=== PATIENT | female | born 1995 | race Caucasian/White ===

== ENCOUNTER → 2022-02-17 | Outpatient (CLI) | payer MEDICAID ==
--- NOTE | 2022-02-17 13:55 | Diagnostic Imaging Report ---
INDICATION: Supervision of normal . Anatomy survey. TECHNIQUE: Multiple real-time grayscale images were obtained over the gravid uterus. COMPARISON: None. FINDINGS: A single live intrauterine gestation is visualized in cephalic presentation. heart tones measure 150 BPM. The placenta is posterior and not low lying. Visually, the BRE is normal, although no measurements were provided. Cervix is closed and measures 5.7 cm in length. The kidneys, bladder, stomach, brain, four-chamber heart, three-vessel cord, spine, and cord insertion are visualized and have a normal appearance. Views of the adnexa have a normal appearance. Biometrical measurements are as follows: Biparietal 5.07 cm, age 21 weeks 3 days. Head circumference 18.85 cm, age 21 weeks 2 days. Abdominal circumference 14.90 cm, age 20 weeks 2 days. Femur length 3.30 cm, age 20 weeks 3 days. Sonographic estimate age: 20 weeks 6 days. Sonographic estimated date of delivery: 07/01/2022. Estimated Weight: 349 gm (+/- 51 gm). LMP percentile: 58%. heart rate: 150 beats per minute. number: 1 of 1. IMPRESSION: 1. Single live intrauterine gestation measuring 20 weeks 6 days with an estimated due date of 07/01/2022. These are within range with the clinical dates. Recommend continued follow-up as indicated. 2. Unremarkable appearance of the anatomy. No abnormalities are identified. Dictated by: Dictated on workstation # [id number]
== END ==
LOC: RAD 12:00
PROVIDERS: ATTEND Obstetrics & Gynecology
DX: Z34.92 Encounter for supervision of normal pregnancy, unspecified, second trimester (principal); Z36.1 Encounter for antenatal screening for raised alphafetoprotein level; Z3A.00 Weeks of gestation of pregnancy not specified
CPT/HCPCS: 76805

== ENCOUNTER → 2022-05-12 | Outpatient (CLI) | payer MEDICAID ==
--- NOTE | 2022-05-12 18:02 | Diagnostic Imaging Report ---
INDICATION: Evaluate growth. 32 weeks 1 day gestation. TECHNIQUE: Multiple real-time grayscale images were obtained over the gravid uterus. COMPARISON: 02/17/2022 FINDINGS: The cervix measures 4.9 cm in length. There is no endocervical fluid or significant funneling. There is a single live intrauterine gestation in breech presentation. The heart rate measures 144 BPM. The placenta is posterior without evidence of previa. The amniotic fluid index measures 11.3 cm. The profile is seen. Biometrical measurements are as follows: Biparietal 8.53 cm, age 34 weeks 3 days. Head circumference 31.92 cm, age 36 weeks 0 days. Abdominal circumference 28.61 cm, age 32 weeks 5 days. Femur length 6.18 cm, age 32 weeks 1 days. Sonographic estimate age: 33 weeks 6 days. Sonographic estimated date of delivery: 06/24/2022. Estimated Weight: 2083 gm (+/- 304 gm). LMP percentile: 66%. heart rate: 144 beats per minute. number: 1 of 1. IMPRESSION: 1. Single live intrauterine gestation measuring at 33 weeks and 6 days which is within range of the clinical dates. 2. Breech presentation. Dictated by: Dictated on workstation # [id number]
== END ==
LOC: RAD 14:00
PROVIDERS: ATTEND Obstetrics & Gynecology
DX: Z87.59 Personal history of other complications of pregnancy, childbirth and the puerperium (principal)
CPT/HCPCS: 76805

== ENCOUNTER 2022-06-30 08:51 | Inpatient (IN) | payer MEDICAID ==
[2022-06-30] VITALS (43 sets, daily range): BP systolic 98–136; BP diastolic 57–85
[~2022-06-30] VITALS: Ht 177.8 cm; Wt 85.8 kg
[2022-06-30 09:40] LABS: BASOPHILS # (AUTO) 0.1 10^3/uL (0.0-0.1); BASOPHILS % (AUTO) 1 % (0-10); EOSINOPHILS # (AUTO) 0.3 10^3/uL (0.0-0.3); EOSINOPHILS % (AUTO) 2 % (0-10); HEMATOCRIT 37 % (35-52); HEMOGLOBIN 12.4 g/dL (11.5-16.0); LYMPHOCYTES # (AUTO) 1.9 10^3/uL (1.0-4.0); LYMPHOCYTES % (AUTO) 15 % (12-44); MEAN CORPUSCULAR HEMOGLOBIN 31 pg (25-34); MEAN CORPUSCULAR HGB CONC 33 g/dL (32-36); MEAN CORPUSCULAR VOLUME 94 fL (80-99); MEAN PLATELET VOLUME 11.5 fL (9.0-12.2); MONOCYTES % (AUTO) 8 % (0-12); NEUTROPHILS # (AUTO) 9.5 10^3/uL (1.8-7.8); NEUTROPHILS % (AUTO) 74 % (42-75); PLATELET COUNT 202 10^3/uL (130-400); WHITE BLOOD COUNT 12.8 10^3/uL (4.3-11.0)
[2022-06-30] MEDS ORDERED: D5 LR IV SOLUTION 1,000 ML IV SCH (09:45)
[2022-06-30] MEDS ORDERED: MINERAL OIL 30 ML UDC TOP PRN (09:45)
[2022-06-30] MEDS ORDERED: fentaNYL 2 mcg/ml BUPIVA 0.125 100 ML ONE (09:54)
[2022-06-30] MEDS ORDERED: fentaNYL INJ 100 MCG/2 ML AMP ONE (10:00)
[2022-06-30] MEDS ORDERED: BUPIVACAINE 0.25% 10 ML (SENSORCAINE) VIAL ONE (10:00)
[2022-06-30] MEDS ORDERED: diphenhydrAMINE 50 MG/ML INJ (BENADRYL) IV PRN (10:15)
[2022-06-30] MEDS ORDERED: CATHETER FLUSH 10 ML SYR IV PRN (10:15)
[2022-06-30] MEDS ORDERED: LACTATED RINGERS 1,000 ML IV ONE (10:15)
[2022-06-30] MEDS ORDERED: ONDANSETRON 4 MG/2 ML (SDV) Z0FRAN IV PRN (10:15)
[2022-06-30] MEDS ORDERED: fentaNYL 2 mcg/ml BUPIVA 0.125 100 ML IV SCH (10:15)
[2022-06-30] MEDS ORDERED: NALOXONE 0.4 MG/ML 1 ML (NARCAN) VIAL IV PRN ×2 (10:15→19:00)
[2022-06-30] MEDS ORDERED: OXYTOCIN PRE-MIX DRIP 500 ML IV SCH ×2 (12:15→19:00)
[2022-06-30] MEDS ORDERED: CATHETER FLUSH 10 ML SYR IV SCH ×2 (14:00→22:00)
--- NOTE | 2022-06-30 16:15 | History & Physical-OB ---
OB - Chief Complaint & HPI Date/Time Date of Admission: Date of Admission: Jun 30, 2022 at 09:34 Date seen by a Provider: Jun 30, 2022 Time Seen by a Provider: 15:00 Chief Complaint/History OB-Reason for Admission/Chief: Vaginal bleeding at term gestation Hx : 2 Hx Para: 1 Expected Date of Delivery: Jul 06, 2022 Gestational Age in Weeks: 39 Gestational Age in Days: 1 Other reason for admission: Labor Admission Nurse Assessment Rev: Yes History of Labs labs: A+/-, HIV NR, Hep Bs Ag neg, HCV neg, Gc/Ch neg, Syphilis Ab NR, R non-immune, GBS negative Other Patient presented for painful contractions. On presentation, cervix was dilated to 4-5cm per RN. She was previously 3cm dilated one day prior. She denied any loss of fluid per vagina, and reported scant vaginal bleeding. FHT is reactive. Patient was admitted for labor, and vaginal bleeding at term gestation. Patient was managed expectantly without cervical ticket dispenser changer a 4 hour period. Pitocin was started for labor augmentation. Allergies and Home Medications Allergies Coded Allergies: Sulfa (Sulfonamide Antibiotics) (Verified Allergy, Unknown, 06/30/22) Patient Home Medication List Home Medication List Reviewed: Yes OB - History Hx of Present Care: Yes Ultrasounds: Normal mid trimester US Obstetrical Complications: None Medical Complications: Psychiatric (Hx of depression) Information Induced Hypertension: No Maternal Gestational Diabetes: No Hemorrhage: No Obstetrical History Hx : 2 Hx Para: 1 Hx # Term Pregnancies: 1 Hx # Pregnancies: 0 Number of Living Children: 1 Hx Termination: No Hx Total # of Abortions (Spona: 0 Hx Multiple Gestation: No Hx Ectopic : No Hx Stillbirth: No Hx Complication: No Hx Induced Hypertens: No Hx Maternal Gestational Diabet: No Hx Hemorrhage: No Delivery History Hx Dystocia: No Hx Forceps Assisted Delivery: No Hx Vacuum Extraction Assisted: No Hx Placenta Abnormality: No Hx Distress: No Hx Large For Gestational Age I: No Hx Small for Gestational Age I: No Hx Section: No Hx Vaginal Delivery Post C-Sec: No Hx Blood Disorders: No Adverse Rxn to Tranfusion: No Patient Past Medical History Depression Social History/Family History Alcohol Use: Denies Use Recreational Drug Use: No Smoking Cessation: Never smoker 2nd Hand Smoke Exposure: No Immunizations Hepatitis A: Yes Hepatitis B: Yes Rubella: not immune GBS Status: Negative OB - Admission Exam Physical Exam Vitals: Vital Signs 06/30/22 09:00 Temp 36.3 Pulse 89 Resp 18 Pulse Ox 99 O2 Delivery Room Air HEENT: Eyes non-injected Heart: Other (normal rate and peripheral perfusion) Lungs: Equal (non-labored, symmetric chest rise) Abdomen: Gravid Extremities: Normal Cervical Dilatation: 6cm Effacement: 75% Station: +1 Membranes: Intact (AROM performed at time of evaluation) Amniotic Fluid: Clear Heart Rate: 130's Accelerations: Accelerations Present Decelerations: No Decelerations Short Term Variability: Present Mcc Variability: Average (6-25) Contractions on Admission: < 5 Minutes Apart Date/Time Contractions Began;: 06/30/22 at 0300 Frequency of Contractions: q 2-3 minutes Intensity: Moderate Cesar Scoring Tool (Modified) Dilation (cm): >5cm (3) Effacement (%): 80-100% (3) Descent/Station: +1, +2 (3) Cervix Consistency: Soft (2) Cervix Position: Middle/Mid-Position (1) Labs Laboratory Tests Test 06/30/22 09:25 Range/Units White Blood Count 12.8 H 4.3-11.0 10^3/uL Red Blood Count 3.95 3.80-5.11 10^6/uL Hemoglobin 12.4 11.5-16.0 g/dL Hematocrit 37 35-52 % Mean Corpuscular Volume 94 80-99 fL Mean Corpuscular Hemoglobin 31 25-34 pg Mean Corpuscular Hemoglobin Concent 33 32-36 g/dL Red Cell Distribution Width 13.6 10.0-14.5 % Platelet Count 202 130-400 10^3/uL Mean Platelet Volume 11.5 9.0-12.2 fL Immature Granulocyte % (Auto) 0 % Neutrophils (%) (Auto) 74 42-75 % Lymphocytes (%) (Auto) 15 12-44 % Monocytes (%) (Auto) 8 0-12 % Eosinophils (%) (Auto) 2 0-10 % Basophils (%) (Auto) 1 0-10 % Neutrophils # (Auto) 9.5 H 1.8-7.8 10^3/uL Lymphocytes # (Auto) 1.9 1.0-4.0 10^3/uL Monocytes # (Auto) 1.0 0.0-1.0 10^3/uL Eosinophils # (Auto) 0.3 0.0-0.3 10^3/uL Basophils # (Auto) 0.1 0.0-0.1 10^3/uL Immature Granulocyte # (Auto) 0.1 0.0-0.1 10^3/uL OB - Assessment/Plan/Diagnosis Assessment Assessment: active labor (with labor augmentation), vaginal bleeding Admission Dx Labor Admission Status: Inpatient Order (span 2 midnights) Reason for Inpatient Admission: Labor Intrauterine at 39w1d Plan Plan: Expectant Management, Other (Labor augmentation) Other Plan Pitocin intiated for labor augmentation given no cervical ticket dispenser changer a 4 hour period AROM was performed with cervical exam at 6cm/75%/+1 ZOYA BEACH MD Jun 30, 2022 16:15
[2022-06-30] MEDS ORDERED: LIDOCAINE 1% INJ 20 ML VIAL ONE (16:24)
[2022-06-30] MEDS ORDERED: SERT-413 PO (17:46)
--- NOTE | 2022-06-30 18:19 | OB Labor & Delivery Record ---
Vag Delivery Note Vag Delivery Note Date of Delivery: 06/30/22 Preoperative Diagnosis: Emi Merino is a (26 /Para 2 / 1,Gestational Age 39w1d, who presented for labor Postoperative Diagnosis: Same Surgeon: ZOYA BEACH MD Anesthesia: Epidural Delivery Type: Vacuum assited vaginal delivery Findings: Living male in GERONIMO position, apgars 8 and 9 at 1 and 5 minutes respectively, weight 3290g Lacerations: first degree perineal Intact placenta with 3 vessel cord. No nuchal cord, body cord or shoulder dystocia Estimated Blood Loss: 200 ml Complications: None Condition: Stable Description of Procedure: The patient is a 26 year old female who presented for labor at 4-5cm cervical dilation. She was admitted and informed consent was obtained. She was initially managed expectantly, and pitocin augmentation was initiated given no cervical change lead a 4 hour period. AROM was performed at 6cm cervical dilation and clear fluid was noted. She progressed to complete dilatation, and was then set up for delivery. She pushed to a small crown after several pushes. An attempt was made to deliver the head. Despite adequate maternal effort, the head could not be delivered, and heart rate decelerations were noted to become more rubén quent. Verbal consent was therefore obtained from the patient for a Vacuum assisted delivery. The indication, risk, and benefits of a vacuum assisted delivery were discussed with the patient. She verbalized understanding, and desired to proceed. A Kiwi Vacuum was applied to the flexion point (3 cm anterior to the posterior fontanelle over the sagittal suture) of the head. Vacuum was pumped to the green zone and with gentle traction combined with maternal pushing effort, the 's head was delivered atraumatically in the GERONIMO position with a single pull and no pop-offs. The shoulders and remainder of the 's body were then delivered without difficulty. Infant was vigorous with good cry, color, and tone at delivery. Infant was placed on the bother's chest with the pediatric staff at bedside. Cord clamping was delayed for 30 seconds, and the cord was then doubly clamped and cut. An intact placenta with 3-vessel cord delivered spontaneously with gentle traction.Fundus was noted to be firm with massage and IV pitocin administration. Examination of the vagina and perineum revealed a first degree perineal laceration that was repaired for hemostasis, using a figure of eight stitch with 2-0 vicryl suture. Excellent hemostasis was noted. Cervix was noted to be intact. Sponge, instrument and needle counts were correct. EBL was 200ml. Mom and baby were both in stable condition in the labor suite. Vitals - Labs Vital Signs - I&O Vital Signs Date Time Temp Pulse Resp B/P (MAP) Pulse Ox O2 Delivery O2 Flow Rate FiO2 06/30/22 09:00 36.3 89 18 99 Room Air Labs Laboratory Tests 06/30/22 09:25: White Blood Count 12.8H, Red Blood Count 3.95, Hemoglobin 12.4, Hematocrit 37, Mean Corpuscular Volume 94, Mean Corpuscular Hemoglobin 31, Mean Corpuscular Hemoglobin Concent 33, Red Cell Distribution Width 13.6, Platelet Count 202, Mean Platelet Volume 11.5, Immature Granulocyte % (Auto) 0, Neutrophils (%) (Auto) 74, Lymphocytes (%) (Auto) 15, Monocytes (%) (Auto) 8, Eosinophils (%) (Auto) 2, Basophils (%) (Auto) 1, Neutrophils # (Auto) 9.5H, Lymphocytes # (Auto) 1.9, Monocytes # (Auto) 1.0, Eosinophils # (Auto) 0.3, Basophils # (Auto) 0.1, Immature Granulocyte # (Auto) 0.1 ZOYA BEACH MD Jun 30, 2022 18:19
[2022-06-30] MEDS ORDERED: BENZOCAINE/MENTHOL (DERMOPLAST) 56 ML CAN TP PRN (19:00)
[2022-06-30] MEDS ORDERED: MEASLES,MUMPS,RUBELLA 1 EA INJ SQ ONE (19:00)
[2022-06-30] MEDS ORDERED: WITCH HAZEL(TUCKS) 40 EA JAR TOP PRN (19:00)
[2022-06-30] MEDS ORDERED: WITCH HAZEL(TUCKS) 40 EA JAR ONE (19:11)
[2022-06-30] MEDS ORDERED: BENZOCAINE/MENTHOL (DERMOPLAST) 56 ML CAN TP ONE (19:12)
[2022-06-30] MEDS ORDERED: ACETAMINOPHEN 500 MG TAB (TYLENOL) ONE (19:35)
[2022-06-30] MEDS ORDERED: IBUPROFEN 600 MG (MOTRIN) TAB PO ONE (19:35)
[2022-06-30] MEDS: ACETAMINOPHEN 500 MG TAB (TYLENOL) PO SCH (19:38)
[2022-06-30] MEDS: IBUPROFEN 600 MG (MOTRIN) TAB PO SCH (19:38)
[2022-07-01] MEDS: ACETAMINOPHEN 500 MG TAB (TYLENOL) PO SCH ×4 (01:41→19:06)
[2022-07-01] MEDS: IBUPROFEN 600 MG (MOTRIN) TAB PO SCH ×4 (01:41→19:06)
[2022-07-01 02:55] VITALS: BP 127/80
[2022-07-01 06:05] VITALS: BP 130/60
[2022-07-01 06:38] LABS: BASOPHILS # (AUTO) 0.1 10^3/uL (0.0-0.1); BASOPHILS % (AUTO) 1 % (0-10); EOSINOPHILS # (AUTO) 0.3 10^3/uL (0.0-0.3); EOSINOPHILS % (AUTO) 3 % (0-10); HEMATOCRIT 35 % (35-52); HEMOGLOBIN 11.5 g/dL (11.5-16.0); LYMPHOCYTES # (AUTO) 2.2 10^3/uL (1.0-4.0); LYMPHOCYTES % (AUTO) 19 % (12-44); MEAN CORPUSCULAR HEMOGLOBIN 32 pg (25-34); MEAN CORPUSCULAR HGB CONC 33 g/dL (32-36); MEAN CORPUSCULAR VOLUME 96 fL (80-99); MEAN PLATELET VOLUME 11.9 fL (9.0-12.2); MONOCYTES # (AUTO) 0.9 10^3/uL (0.0-1.0); MONOCYTES % (AUTO) 7 % (0-12); NEUTROPHILS # (AUTO) 8.5 10^3/uL (1.8-7.8); NEUTROPHILS % (AUTO) 71 % (42-75); PLATELET COUNT 172 10^3/uL (130-400)
[2022-07-01] MEDS ORDERED: PRENATAL VITAMIN 1 EA TAB PO SCH (07:00)
[2022-07-01 08:07] VITALS: BP 121/65
[2022-07-01] MEDS: DOCUSATE SODIUM 100 MG (COLACE) CAP PO SCH ×2 (08:21→11:40)
[2022-07-01] MEDS ORDERED: SERTRALINE 50 MG (ZOLOFT) TABLET PO SCH (09:00)
[2022-07-01] MEDS ORDERED: FERROUS SULF 325 MG (IRON) TAB PO SCH (09:00)
--- NOTE | 2022-07-01 14:51 | Anesthesia-Regional Post-Op ---
Regional Patient Condition Mental Status: Alert, Oriented x3 Circulation: Same as Pre-Op Headache: Absent Sensation: Full Recovery Motor Block: Absent Post Op Complications Complications None Follow Up Care/Instructions Patient Instructions None needed. Anesthesia/Patient Condition Patient is doing well, no complaints, stable vital signs, no apparent adverse anesthesia problems. No complications reported per nursing. OWEN BROCK CRNA Jul 01, 2022 14:51
--- NOTE | 2022-07-01 16:30 | Postpartum Progress Note ---
Note Note Day # 1 Subjective: Patient reports doing well without complaints. She is ambulating, voiding. Tolerating a regular diet without nausea or vomiting. Normal lochia. Pain is well controlled with oral pain medications. Breast feeding. She denies any CP, SOB, palpitions, HANDLEY, vision abnormalities, LE pain Objective: Vital Signs 07/01/22 08:07 Temp 36.7 Pulse 74 Resp 18 B/P (MAP) 121/65 (83) Pulse Ox 97 O2 Delivery Room Air Physical Exam: General - Alert and oriented, no apparent distress Resp - nonlabored, symmetric chest rise Heart: normal rate and peripheral perfusion Abdomen - Soft, appropriately tender to palpation, non-distended, fundus firm at umbilicus Extremities - mild equal bilat pedal edema, NTTP, negative Esperanza's bilaterally Assessment: post- day # 1, status post vacuum assisted vaginal delivery. Recovering well, hemodynamically stable, meeting discharge criteria Plan: Routine care. Encourage breast feeding. Encourage ambulation. Ferrous sulfate supplementation. Plan for discharge today Vitals - Labs Vital Signs - I&O Vital Signs Date Time Temp Pulse Resp B/P (MAP) Pulse Ox O2 Delivery O2 Flow Rate FiO2 07/01/22 08:07 36.7 74 18 121/65 (83) 97 Room Air 07/01/22 06:05 36.2 77 18 130/60 (83) 97 Room Air 07/01/22 02:55 36.5 71 20 127/80 (96) 96 Room Air 06/30/22 22:41 36.7 65 16 122/69 (86) 96 Room Air 06/30/22 18:29 85 18 121/85 (97) 06/30/22 18:13 73 18 136/76 (96) 06/30/22 17:58 78 18 129/66 (87) 06/30/22 17:43 74 18 135/76 (95) 06/30/22 17:28 36.6 85 18 130/68 (88) 06/30/22 17:14 93 18 129/70 (89) 06/30/22 17:12 84 18 135/60 (85) l I & O 07/01/22 07:00 Intake Total 2500 ml Balance 2500 ml Labs Laboratory Tests 07/01/22 05:42: White Blood Count 12.0H, Red Blood Count 3.65L, Hemoglobin 11.5, Hematocrit 35, Mean Corpuscular Volume 96, Mean Corpuscular Hemoglobin 32, Mean Corpuscular Hemoglobin Concent 33, Red Cell Distribution Width 13.7, Platelet Count 172, Mean Platelet Volume 11.9, Immature Granulocyte % (Auto) 0, Neutrophils (%) (Auto) 71, Lymphocytes (%) (Auto) 19, Monocytes (%) (Auto) 7, Eosinophils (%) (Auto) 3, Basophils (%) (Auto) 1, Neutrophils # (Auto) 8.5H, Lymphocytes # (Auto) 2.2, Monocytes # (Auto) 0.9, Eosinophils # (Auto) 0.3, Basophils # (Auto) 0.1, Immature Granulocyte # (Auto) 0.0 ZOYA BEACH MD Jul 01, 2022 16:30
[2022-07-01] MEDS ORDERED: FERR325T24 PO (16:34)
[2022-07-01] MEDS ORDERED: DOCU100C37 PO (16:34)
[2022-07-01] MEDS ORDERED: IBUP-844 PO (16:34)
[2022-07-01] MEDS ORDERED: ACET-93 PO (16:34)
--- NOTE | 2022-07-01 16:39 | Discharge Inst-Simple/Standard ---
Discharge Inst-Standard Reconcile Patient Problems Problems Reviewed?: Yes Discharge Medications New, Converted or Re-Newed RX: Transmitted to Pharmacy Patient Instructions/Follow Up Plan of Care/Instructions/FU: - Pelvic Rest for 6 weeks; no sex, tampon use, or douching - Keep all follow up appointments. Activity as Tolerated: Yes Discharge Diet: No Restrictions Return to The Hospital For: - Return to clinic in 6 weeks for post visit - Return for temperature >100.4 degrees, vaginal bleeding greater than 2 maxi pads in 1 hour over 4 hours, abdominal pain, intractable nausea or vomiting, headaches that don't go away with treatment, spots in your vision, chest pain/shortness of breath or other concerns. ZOYA BEACH MD Jul 01, 2022 16:39
[2022-07-01 16:57] VITALS: BP 138/85
--- NOTE | 2022-07-01 16:57 | Short Stay Summary ---
Discharge Summary Hospital Course Problems/Dx: (1) Hx of major depression (2) 39 weeks gestation of (3) Spontaneous onset of labor Final Diagnosis: Labor, s/p vacuum assisted vaginal delivery Hospital Course Date of Admission: Jun 30, 2022 at 09:34 Admission Diagnosis : Family Physician/Provider: Clayton Gomez Physician Date of Discharge: 07/01/22 Discharge Diagnosis: s/p vacuum assited vaginal delivery Hospital Course: Patient is a 26 yo G2 now P2002, who presented for contractions. On presentation SVE was 4-5/90/-1 with regular painful contractions noted. FHT was reactive, vital signs were unremarkable, and she was admitted for labor. Her labor was initially managed expectantly. She was GBS negative, and intrapart um antibiotics was not indicated. During her labor course, she received an epidural for pain management. She received Pitocin for labor augmentation, and AROM was performed. She progressed to delivery a living male infant on 06/30/2022, via vacuum assisted vaginal delivery, and sustained a first degree perineal laceration that was repaired in usual fashion. See delivery summary for details. Her course was uncomplicated. By POD#1 she was meeting discharge criteria and desired discharge home. PPD #1 Hgb was 11.5g/dL from 12.4 g/dL. She was ambulation, tolerating regular PO diet with nausea/vomiting, passing flatus, voiding without difficulty, and pain controlled with oral medications. She was discharged home in good medical condition on day #1. Labs and Pending Lab Test: Laboratory Tests 07/01/22 05:42: White Blood Count 12.0H, Red Blood Count 3.65L, Hemoglobin 11.5, Hematocrit 35, Mean Corpuscular Volume 96, Mean Corpuscular Hemoglobin 32, Mean Corpuscular Hemoglobin Concent 33, Red Cell Distribution Width 13.7, Platelet Count 172, Mean Platelet Volume 11.9, Immature Granulocyte % (Auto) 0, Neutrophils (%) (Auto) 71, Lymphocytes (%) (Auto) 19, Monocytes (%) (Auto) 7, Eosinophils (%) (Auto) 3, Basophils (%) (Auto) 1, Neutrophils # (Auto) 8.5H, Lymphocytes # (Auto) 2.2, Monocytes # (Auto) 0.9, Eosinophils # (Auto) 0.3, Basophils # (Auto) 0.1, Immature Granulocyte # (Auto) 0.0 Home Meds Active Docusate Sodium 100 Mg Capsule 100 Mg PO BID 30 Days Acetaminophen 500 Mg Tablet 1,000 Mg PO Q6H 30 Days Ibu (Ibuprofen) 600 Mg Tablet 600 Mg PO Q6H 30 Days Ferosul (Ferrous Sulfate) 325 Mg (65 Mg Iron) Tablet 325 Mg PO DAILY 60 Days Reported Sertraline HCl 50 Mg Tablet 50 Mg PO DAILY Assessment/Pt Instructions 26 yo G2 now P2002 who presented in labor with intrauterine at 39w1d, and now s/p vacuum assisted vaginal delivery Discharge Instructions Discharge Diet: No Restrictions Activity as Tolerated: Yes Discharge Physical Examination General Appearance: Alert, Oriented X3, Cooperative HEENT: Atraumatic, EOMI Respiratory: Other (non-labored respirations, symmetric chest rise) Cardiovascular: Other (normal rate and peripheral perfusion) Abdominal: Soft, No Tenderness, Other (fundus firm below umbilicus) Extremities: No Clubbing, No Cyanosis (mild equal bilat pedal edema, NTTP) Skin: No Breakdown Neuro: Normal Gait, Normal Speech Allergies: Coded Allergies: Sulfa (Sulfonamide Antibiotics) (Verified Allergy, Unknown, 06/30/22) Discharge Summary Date of Admission Jun 30, 2022 at 09:34 Date of Discharge ZOYA BEACH MD Jul 01, 2022 16:55
[2022-07-01 20:15] VITALS: BP 138/85
== END 2022-07-01 20:45 | disposition home or self-care (01) | DRG 807 ==
LOC: LDRP 08:51 → WSo 08:51 → LDRP 09:34 → WSo 09:34 → LDRP 20:20
PROVIDERS: ADMIT Obstetrics & Gynecology; ATTEND Obstetrics & Gynecology
PROC: 10D07Z6 Extraction of Products of Conception, Vacuum, Via Natural or Artificial Opening (ICD-10-PCS; principal; 2022-06-30)
PROC: 0HQ9XZZ Repair Perineum Skin, External Approach (ICD-10-PCS; 2022-06-30)
DX: O70.0 First degree perineal laceration during delivery (principal); Z37.0 Single live birth; Z3A.39 39 weeks gestation of pregnancy; O99.343 Other mental disorders complicating pregnancy, third trimester; F32.9 Major depressive disorder, single episode, unspecified; Z88.2 Allergy status to sulfonamides
CPT/HCPCS: 36415; 85025; 86850; 86900; 86901; 99212